=== PATIENT | male | born 1940 | race Caucasian/White ===

== ENCOUNTER → 2016-05-04 | Outpatient (CLI) | payer MEDICARE, BC ==
[2016-05-04 12:11] LABS: ALT 29 U/L (21-72); AST 19 U/L (17-59); Alkaline Phosphatase 64 U/L (38-126); Anion Gap 8 mmol/L; Blood Urea Nitrogen 14 mg/dL (9-20); Calcium 8.7 mg/dL (8.4-10.2); Carbon Dioxide 28 mmol/L (22-30); Chloride 101 mmol/L (98-107); Cholesterol 147 mg/dL (<200); Glucose 96 mg/dL (74-99); HDL Cholesterol 53 mg/dL (40-60); Non-African American GFR(MDRD) >60 (>60 ml/min/1.73 sqM); Potassium 4.7 mmol/L (3.5-5.1); Sodium 137 mmol/L (137-145); Total Bilirubin 0.6 mg/dL (0.2-1.3); Total Protein 6.6 g/dL (6.3-8.2); Triglycerides 88 mg/dL (<150)
--- NOTE | 2016-05-04 13:52 | CT ---
EXAMINATION TYPE: CT angio thoracic/abd aorta DATE OF EXAM: 05/04/2016 1:25 PM COMPARISON: CT CAP July 20, 2014 HISTORY: follow up AAA per patient CT DLP: 1674.7 mGycm. Automated Exposure Control for Dose Reduction was Utilized. CONTRAST: CTA scan of the thorax, abdomen and pelvis is performed without oral and without and with IV Contrast , patient injected with 100 mL of Omnipaque 350. Three-D reconstructed images are created on independ ent workstation and reviewed. FINDINGS: VASCULAR: Ascending aorta measures up to 4.0 cm diameter on axial image 23. Adjacent main pulmonary a rtery measures 2.6 cm in diameter. A 4 vessel aortic arch is redemonstrated, normal variant. Slightly ectatic course to descending thoracic aorta is seen. No aneurysmal is identified. There is patent co mmon as well as internal and external iliac arteries bilaterally. There is patent common as well as p roximal superficial and deep femoral arteries bilaterally. There is patent celiac axis, SMA, MORIS, and bilateral single renal arteries. LUNGS: Exam is suboptimal as is degraded by respiratory motion artifact. Dependent atelectasis in bot h lungs is present. No suspicious parenchymal nodule or mass is seen bilaterally. No pleural effusion or pneumothorax is noted bilaterally. MEDIASTINUM: There are no greater than 1 cm hilar or mediastinal lymph nodes. No pericardial effusi on is seen. No cardiomegaly is present. There is mild to moderate biatrial and right ventricular dil atation felt present. OTHER: No additional significant abnormality is seen. LIVER/GB: No significant abnormality is appreciated. PANCREAS: No significant abnormality is seen. SPLEEN: No significant abnormality is seen. ADRENALS: No significant abnormality is seen. KIDNEYS: There is 1.5 cm simple appearing cyst posteriorly mid pole level left kidney on axial image 60 series 6. BOWEL: Moderate to large size fixed hiatal hernia is redemonstrated. Scattered colonic diverticula mo st pronounced at sigmoid colon level is redemonstrated. There is no CT evidence for acute diverticuli tis. There is stable 3.5 cm duodenal diverticulum on coronal image 39. GENITAL ORGANS: Prostate gland is heterogeneous in appearance and slightly prominent in size bulging on bladder base, clinical correlation for BPH is advised.. LYMPH NODES: No greater than 1cm abdominal or pelvic lymph nodes are appreciated. 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 There is advanced disc space narrowing with vacuum disc phenomenon as well as endplate sclerosis and mild spurring at L5-S1 level. There is grade 1 anterolisthesis of L5 on S1. OTHER: No significant additional abnormality is seen. IMPRESSION: Stable mild aneurysmal change to ascending thoracic aorta 4.0 cm. No ascending thoracic o r abdominal aortic aneurysm. No dissection is evident. No significant new finding seen on current reji dy.
== END | disposition home or self-care (01) ==
LOC: RADCTMAIN 11:25
PROVIDERS: ATTEND Internal Medicine Interventional Cardiology
DX: I71.2 Thoracic aortic aneurysm, without rupture (principal)
CPT/HCPCS: 80061; 80053; 75635; 71275; 36415; Q9967

== ENCOUNTER → 2016-12-01 | Outpatient (CLI) | payer MEDICARE, BC ==
[2016-12-01 11:31] LABS: ALT 31 U/L (21-72); AST 17 U/L (17-59); Alkaline Phosphatase 74 U/L (38-126); Anion Gap 7 mmol/L; Blood Urea Nitrogen 13 mg/dL (9-20); Calcium 8.9 mg/dL (8.4-10.2); Carbon Dioxide 27 mmol/L (22-30); Chloride 102 mmol/L (98-107); Cholesterol 149 mg/dL (<200); Glucose 94 mg/dL (74-99); HDL Cholesterol 50 mg/dL (40-60); Non-African American GFR(MDRD) >60 (>60 ml/min/1.73 sqM); Potassium 4.9 mmol/L (3.5-5.1); Sodium 136 mmol/L (137-145); Total Bilirubin 0.6 mg/dL (0.2-1.3); Total Protein 6.5 g/dL (6.3-8.2)
== END | disposition home or self-care (01) ==
LOC: LABWHC1 10:40
PROVIDERS: ATTEND Internal Medicine Interventional Cardiology
DX: E78.2 Mixed hyperlipidemia (principal)
CPT/HCPCS: 36415; 80053; 80061

== ENCOUNTER → 2017-06-30 | Outpatient (CLI) | payer MEDICARE, BC ==
--- NOTE | 2017-06-30 11:30 | CT ---
EXAMINATION TYPE: CT angio chest DATE OF EXAM: 06/30/2017 COMPARISON: 05/04/2016 HISTORY: 76-year-old male up study for ascending aortic aneurysm. TECHNIQUE: Contiguous axial scanning of the chest performed with IV Contrast, patient injected with 1 00 mL of Omnipaque 350. Coronal/sagittal MIP reconstructions performed. 3-D reconstructions generated on a dedicated independent workstation. CT DLP: 500 mGycm Automated exposure control for dose reduction was used. FINDINGS: The heart is upper limits of normal in size without pericardial effusion. Coronary vessel calcificati ons are present and are a marker for coronary artery disease. -The aortic root is ectatic at 3.9 cm. Difficult to accurately measure on the prior exam secondary to excessive motion artifacts. -Ascending aorta remains mildly aneurysmal at 4.0 cm. -Bovine configuration to the aortic arch with variant direct takeoff of the left vertebral artery fro m the arch. -Mild atherosclerotic arch calcifications. -The upper descending thoracic aorta is ectatic at 3.0 cm, unchanged. -The lower descending thoracic aorta is ectatic at 2.6 cm, unchanged. Large caliber to the main right and left pulmonary arteries are 3.1 and 2.6 cm, respectively, suggest ing underlying pulmonary arterial hypertension. No thoracic lymphadenopathy by CT size criteria. Mild diffuse bronchial wall thickening without consolidation or pleural effusion. Redemonstrated moderate to large hiatal hernia. Visualized upper abdomen shows colonic diverticulosis and partially visualized posterior left renal cyst which was also present in 2017. Large diverticulu m of the second portion of the duodenum projecting to the pancreatic head. Bones: Endplate spondylosis mid to lower thoracic spine. IMPRESSION: 1. STABLE ANEURYSM ASCENDING AORTA (4.0 CM) AND ECTATIC DESCENDING THORACIC AORTA (3.0 CM). 2. CORRELATE FOR POSSIBLE UNDERLYING PULMONARY ARTERIAL HYPERTENSION GIVEN LARGE CALIBER TO THE RIGHT AND LEFT PULMONARY ARTERIES. 3. MODERATE TO LARGE HIATAL HERNIA REDEMONSTRATED.
== END | disposition home or self-care (01) ==
LOC: RADCTMAIN 09:57
PROVIDERS: ATTEND Internal Medicine Interventional Cardiology
DX: I71.2 Thoracic aortic aneurysm, without rupture (principal); K44.9 Diaphragmatic hernia without obstruction or gangrene; E78.2 Mixed hyperlipidemia
CPT/HCPCS: 82565; 84520; 71275; 36415; Q9967

== ENCOUNTER → 2018-06-28 | Outpatient (CLI) | payer MEDICARE, BC ==
[2018-06-28 10:16] LABS: Albumin 3.7 g/dL (3.5-5.0); Potassium 4.6 mmol/L (3.5-5.1); Total Bilirubin 0.6 mg/dL (0.2-1.3); Total Protein 6.5 g/dL (6.3-8.2)
--- NOTE | 2018-06-28 13:58 | CT ---
EXAMINATION TYPE: CT angio chest DATE OF EXAM: 06/28/2018 COMPARISON: 06/30/2017 HISTORY: 77-year-old male Follow up known thoracic aortic aneurysm without rupture. TECHNIQUE: Contiguous axial scanning of the chest performed with IV Contrast, patient injected with 1 00 mL of Isovue 300. Coronal and sagittal MIP reconstructions performed. 3-D reconstructions generate d on a dedicated independent workstation. CT DLP: 566.6 mGycm Automated exposure control for dose reduction was used. FINDINGS: Heart upper limits of normal in size with small anterior pericardial effusion measuring 9 mm thick. -Mild aortic valvular calcifications are demonstrated. -Aortic root borderline aneurysmal at 4.0 cm, previously measured at 3.9 cm. -Stable mild aneurysm ascending aorta at 4.0 cm. -Mild atherosclerotic calcifications of the aortic arch with bovine configuration and variant direct takeoff of the left vertebral artery from the arch. -Stable ectatic upper descending thoracic aorta at 3.0 cm and lower descending thoracic aorta at 2.7 cm. Stable enlargement of the right and left pulmonary arteries measuring up to 3.1 cm suggesting underly ing pulmonary arterial hypertension. No thoracic lymphadenopathy by CT size criteria. Some strandy atelectasis/scarring in the lower lungs. Mild diffuse bronchial wall thickening is uncha nged and could represent chronic bronchitis or asthma. Redemonstrated moderate-sized hiatal hernia with half of the stomach located in the lower chest. Colonic diverticulosis. Suggestion of parapelvic cysts in the left kidney. Redemonstrated diverticulu m of the second portion of the duodenum projecting into the pancreatic head region. Bones: Endplate spondylosis mid to lower thoracic spine. IMPRESSION: 1. THE AORTIC ROOT MAY BE MILDLY ANEURYSMAL (4.0 CM VERSUS 3.9 CM MEASURED PREVIOUSLY). 2. OTHERWISE, STABLE MILD ANEURYSM ASCENDING AORTA (4.0 CM) AND ECTATIC DESCENDING THORACIC AORTA (3. 0 CM). 3. AGAIN, THERE IS LARGE CALIBER TO THE MAIN RIGHT AND LEFT PULMONARY ARTERIES SUGGESTING UNDERLYING PULMONARY ARTERIAL HYPERTENSION. CLINICALLY CORRELATE. 4. COLONIC DIVERTICULOSIS AND MODERATE SIZED HIATAL HERNIA REDEMONSTRATED.
== END | disposition home or self-care (01) ==
LOC: RADCTMAIN 09:10
PROVIDERS: ATTEND Internal Medicine Interventional Cardiology
DX: I71.2 Thoracic aortic aneurysm, without rupture (principal); E78.2 Mixed hyperlipidemia; I28.8 Other diseases of pulmonary vessels
CPT/HCPCS: 80061; 80053; 71275; 36415; Q9967

== ENCOUNTER → 2021-08-04 | Outpatient (CLI) | payer MEDICARE, BC ==
--- NOTE | 2021-08-04 15:04 | CT ---
EXAMINATION TYPE: CT angio chest DATE OF EXAM: 08/04/2021 COMPARISON: CT dated 06/28/2018 HISTORY: Thoracic aortic aneurysm, without rupture CT DLP: 737 mGy.cm. Automated Exposure Control for Dose Reduction was Utilized. TECHNIQUE AND CONTRAST: CTA scan of the thorax is performed with IV Contrast, patient injected with 80ml mL of Isovue 370, th oracic aortogram protocol. MIP and 3-D Images are created on an independent workstation and reviewe d. FINDINGS: The ascending aorta measures 4.2 cm compared to 4 cm previously. Bovine aortic arch. Scattered arteri al atherosclerotic calcifications. Unremarkable remainder of the visualized thoracic and upper abdomi nal aorta. Dilated pulmonary arteries measuring up to 3.1 cm on the right side and 3.2 cm on the left side which may suggest pulmonary hypertension. Cardiomegaly. Coronary arterial calcification. Minima l pericardial fluid. 12 mm filling defect is seen at the right posterolateral aspect of the mid to lower trachea which cou ld represent intraluminal secretions however other lesion cannot be excluded, please correlate clinic ally. Further bronchoscopy can be considered. Unremarkable remainder of the trachea and main bronchi. Minimal bilateral lower lobar pulmonary atelectasis. No pleural effusion. No pathologically enlarged lymph nodes in the chest. Sizable hiatal hernia conta ining sizable portion of the stomach. Suspected cyst at the medial aspect of the right hepatic lobe, not completely included in the scan. Smaller cyst is seen in segment 8 of the liver. Degenerative sherly nges of the thoracic spine. IMPRESSION: Ascending aortic aneurysm measuring 4.2 cm compared to 4 cm previously. Other interval changes and in cidental findings as detailed above.
== END | disposition home or self-care (01) ==
LOC: RADCTMAIN 10:44
PROVIDERS: ATTEND Internal Medicine Interventional Cardiology
DX: I71.2 Thoracic aortic aneurysm, without rupture (principal)
CPT/HCPCS: 82565; 84520; 71275; Q9967

== ENCOUNTER → 2022-07-07 | Outpatient (CLI) | payer MEDICARE, BC | END | disposition home or self-care (01) | LOC: RADCTMAIN 09:36 | PROVIDERS: ATTEND Internal Medicine Interventional Cardiology | DX: I71.20 Thoracic aortic aneurysm, without rupture, unspecified (principal) | CPT/HCPCS: 82565; 84520 ==